=== PATIENT | male | born 1965 | race Caucasian/White ===

== ENCOUNTER 2020-10-14 08:57 | Emergency (ER) | payer OTHER ==
[2020-10-14] MEDS ORDERED: Acetaminophen 500 MG Tab PO ONE (09:27)
[2020-10-14] MEDS ORDERED: Diphtheria,Pertussis(Acell),Tetanus Vaccine 0.5 ML Syringe IM ONE (09:30)
[2020-10-14] MEDS ORDERED: Diphtheria,Pertussis(Acell),Tetanus Vaccine 0.5 ML Syringe ONE (09:35)
--- NOTE | 2020-10-14 09:45 | EDM.PDOC ---
ED HPI GENERAL MEDICAL PROBLEM - General Chief Complaint: General Stated Complaint: FELL OUT OF WORK TRUCK Time Seen by Provider: 10/14/20 09:12 - History of Present Illness INITIAL COMMENTS - FREE TEXT/NARRATIVE: CHIEF COMPLAINT(S): Fall HISTORY OF PRESENT ILLNESS: This is a 55-year-old without any past medical history who comes to the emergency department with a chief complaint of fall. 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 He states that they use a platform which is approximately 5 feet off the ground without any handrails in a ladder. He states that he was going down and his leg got stuck and he tripped. He states that he was hanging by his right leg and hit his head and had some brief loss of consciousness. He states that at this time he is experiencing some right leg, right knee, right elbow, and left lower back pain. He states that he does feel some hot and tingling feeling in his right leg. He denies any bowel incontinence or urinary incontinence. He states his pain is currently a of 10 and described as achy and worse with movement. He states that he has not yet tried anything to relieve the pain. He denies any neck pain but states that when he turns his head to the left he does feel some numbness in his right arm. He denies any blurry vision, double vision or loss of consciousness. He states that he does not know when his tetanus shot last was administered. He denies any associated symptoms or preceding symptoms such as chest pain, shortness of breath, abdominal pain, nausea or vomiting. He denies any use of blood thinners. He states that he is able to ambulate however it is painful. REVIEW OF SYSTEMS: Constitutional: Denies fever, chills. Eyes: Denies eye pain Ears, Nose, Mouth, & Throat: Denies earache Cardiovascular: Denies chest pain Respiratory: Denies shortness of breath Gastrointestinal: Denies Nausea, vomiting, diarrhea, hematochezia. Genitourinary: Denies hematuria Skin:Denies a rash MSK: Positive for right leg, right knee, right elbow and lower back pain. Neurological: Positive for tingling in his right lower extremity and right arm numbness when his head turns to the left. Denies any blurry vision, double vision. Psychiatric: Denies depression PAST MEDICAL HISTORY: As per history of present illness and as reviewed below otherwise noncontributory. SURGICAL HISTORY: As per history of present illness and as reviewed below otherwise noncontributory. SOCIAL HISTORY: As per history of present illness and as reviewed below otherwise noncontributory. FAMILY HISTORY: As per history of present illness and as reviewed below otherwise noncontributory. EXAMINATION OF ORGAN SYSTEMS/BODY AREAS: Constitutional: Blood pressure is 156/87, heart rate 87, respiratory rate 17 with an oxygen saturation 97% on room air. Temperature 36.5 General: Overall well-appearing man who is in no acute distress Psychiatric: Appropriate mood and affect. Eyes: No scleral icterus or conjunctival erythema pupils are equal round reactive to light. Extraocular movements intact. No vertical or horizontal nystagmus. ENMT: Moist mucous membranes. No pharyngeal erythema no hemotympanum or blood in the oropharynx. Cardiovascular: Regular, rate, and rhythm. No gallops, murmurs, or rubs. Bilateral upper extremity and lower extremity pulses symmetric and intact. No peripheral edema. No JVD. Respiratory: Lungs clear to auscultation bilaterally. No wheezes, rales, or rhonchi. Gastrointestinal: Soft, non-tender, non-distended. Normoactive bowel sounds Genitourinary: No suprapubic tenderness Musculoskeletal: The patient does have full range of motion of the right elbow, right knee, right hip, right ankle however with some degree of pain. There is no obvious deformity of any of these extremities. No swelling noted. Compartments were soft. No midline cervical, thoracic, or lumbar tenderness. Skin: There is a linear wound on the patient's right anterior lower leg without any exposed bone or tendon. There is also some abrasions/wounds on the patient's right posterior thigh and posterior knee. Neurological: AOx4. CN grossly intact. Stregth 5/5 in bilateral upper and lower extremity. Sensation is intact bilaterally in upper and lower extremity. Gait appears normal. Patient does report some decreased sensation in the right upper extremity in all distributions when turning his head to the left. MEDICAL DECISION MAKING AND COURSE IN THE ED WITH INTERPRETATION/REVIEW OF DIAGNOSTIC STUDIES: This is a 55-year-old and without any significant past medical history who comes to the emergency department with head injury with loss of consciousness and right elbow, right knee, right tib-fib with multiple abrasions. At this time there is no deformity and the patient is neurovascularly intact. Compartments were soft therefore compartment syndrome is likely not the contributing factor to the patient's pain. Given the patient's location of pain will obtain a right knee x-ray, right tib-fib x-ray and a CT head and CT cervical spine to evaluate for any abnormality. Patient's right elbow has no deformity and minimal tenderness therefore no x-ray will be obtained. There is no midline lumbar tenderness therefore no lumbar spine x-ray or CT will be obtained. We will update the patient's tetanus and provide the patient with Tylenol as he will be driving. I do not believe any other labs or other imaging are indicated. The radiological images were viewed by myself along with reading the report from the radiologist. CT head without contrast does not reveal any acute intracranial hemorrhage or mass. CT cervical spine does not reveal any acute fracture or subluxation. There is a well-corticated ossific density posterior to the C7 spinous process which may represent an age-indeterminate fracture however favored to represent chronic findings given well corticated margin. Right tib-fib x-ray does not reveal any fracture or dislocation. Right knee x-ray does not reveal any fracture or dislocation. On reevaluation I did discuss the results with the patient. I did discuss with him that there was no evidence of any fractures. He was able to ambulate at this time. I did discuss pain management with the patient. He is to follow-up with orthopedics within 5 to 7 days. He is to return for any new or worsening symptoms. I did provide the patient with a contact information in [place] as this is where the patient is from. DISPOSITION: The patient was discharged home in stable condition. The patient will follow up with orthopedics in 5 to 7 days CONDITION: Fair PROCEDURES: None FINAL IMPRESSION(S)/DIAGNOSES: 1. Acute accidental fall 2. Acute closed head injury 3. Acute abrasions to bilateral lower extremities 4. Acute right knee pain, possible ligamentous injury DME: Right knee immobilizer Indication: Right knee pain with possible ligamentous injury Benefit: Immobilization Duration: Until follow-up with orthopedics Cm Jefferson M.D. right leg/knee Pain Score (Numeric/FACES): 8 - Related Data Allergies Allergy/AdvReac Type Severity Reaction Status Date / Time No Known Allergies Allergy Verified 10/14/20 09:04 Home Meds: Home Meds . [No Known Home Meds] 10/14/20 [History] Past Medical History Genitourinary History: Reports: Renal Calculus - Infectious Disease History Infectious Disease History: Reports: None - Past Surgical History GI Surgical History: Reports: Appendectomy Social & Family History - Family History Family Medical History: No Pertinent Family History - Tobacco Use Tobacco Use Status *Q: Never Tobacco User - Caffeine Use Caffeine Use: Reports: Coffee - Recreational Drug Use Recreational Drug Use: No ED ROS GENERAL - Review of Systems Review Of Systems: See Below ED EXAM, GENERAL - Physical Exam Exam: See Below Course - Vital Signs Last Recorded V/S: Last Vital Signs Temp 36.7 C 10/14/20 11:12 Pulse 79 10/14/20 11:12 Resp 19 10/14/20 11:12 BP 130/83 10/14/20 11:12 Pulse Ox 96 10/14/20 11:12 - Orders/Labs/Meds Meds: Medications Discontinued Medications Generic Name Dose Route Start Last Admin Trade Name Milton PRN Reason Stop Dose Admin Acetaminophen 1,000 mg 10/14/20 09:27 10/14/20 09:31 Acetaminophen 500 Mg Tab PO 10/14/20 09:28 1,000 mg ONETIME ONE Administration Diphtheria/Tetanus/Acell Pertussis 0.5 ml 10/14/20 09:30 10/14/20 16:43 Diphtheria,Pertussis(Acell),Tetanus Vaccine 0.5 Ml Syringe IM 10/14/20 09:31 Not Given .ONCE ONE Diphtheria/Tetanus/Acell Pertussis Confirm 10/14/20 09:35 10/14/20 10:05 Diphtheria,Pertussis(Acell),Tetanus Vaccine 0.5 Ml Syringe Administered 10/14/20 09:36 0.5 ml Dose Administration 0.5 ml .ROUTE .STK-MED ONE Ketorolac Tromethamine 15 mg 10/14/20 10:45 10/14/20 10:59 Ketorolac 15 Mg/Ml Sdv IM 10/14/20 10:46 15 mg ONETIME ONE Administration Departure - Departure Time of Disposition: 10:43 Disposition: Home, Self-Care 01 Condition: Fair Clinical Impression: Closed head injury, Injury of right knee - Discharge Information *PRESCRIPTION DRUG MONITORING PROGRAM REVIEWED*: No *COPY OF PRESCRIPTION DRUG MONITORING REPORT IN PATIENT PAT: No Instructions: Acute Knee Pain, Adult, Articular Cartilage Injury, Head Injury, Adult, [id number] Referrals: PCP,None [Primary Care Provider] - Forms: ED Department Discharge Additional Instructions: You evaluate today on an emergent basis. At this time there was no evidence of any fractures however x-rays do not show any ligamentous or tendon injury. We did provide you with a knee immobilizer. I do recommend that you keep the right lower extremity elevated and use pain medications as described below. Please ice the area 20 minutes 4 times a day. In addition given your loss of consciousness you may experience postconcussive syndrome as we discussed. If you have any new or worsening symptoms such as vomiting that cannot be controlled, numbness, tingling, weakness please return to the emergency department. Please follow-up with orthopedics within 5 to 7 days. Please use: Tylenol 500-1000mg every 6 hours (DO NOT TAKE MORE THAN 4000mg in 1 day) Ibuprofen 400mg every 6 hours (Take with food as it can cause ulcers, GI upset) Example schedule: 8:00 AM (Tylenol 500-1000mg) 11:00 AM (Ibuprofen 400mg) 2:00 PM (Tylenol 500-1000mg) 5:00 PM (Ibuprofen 400mg) Ice the area 20 minutes [address] [facility] [place], [place] [phone] The patient is informed of any results of their evaluation and diagnostic workup and all questions are answered. They are given discharge instructions and return precautions. The patient is stable for discharge. The patient states they understand and agree with the plan and that they will return if their symptoms get worse or if they have any new concerns. The following information is given to patients seen in the emergency department who are being discharged to home. This information is to outline your options for follow-up care. We provide all patients seen in our emergency department with a follow-up referral. The need for follow-up, as well as the timing and circumstances, are variable depending upon the specifics of your emergency department visit. If you don't have a primary care physician on staff, we will provide you with a referral. We always advise you to contact your personal physician following an emergency department visit to inform them of the circumstance of the visit and for follow-up with them and/or the need for any referrals to a consulting specialist. The emergency department will also refer you to a specialist when appropriate. This referral assures that you have the opportunity for follow-up care with a specialist. All of these measure are taken in an effort to provide you with optimal care, which includes your follow-up. Under all circumstances we always encourage you to contact your private physician who remains a resource for coordinating your care. When calling for follow-up care, please make the office aware that this follow-up is from your recent emergency room visit. If for any reason you are refused follow-up, please contact the [facility] Emergency Department at and asked to speak to the emergency department charge nurse. Sepsis Event Note (ED) - Evaluation Sepsis Screening Result: No Definite Risk
--- NOTE | 2020-10-14 10:11 | CT ---
Indication: Fell off truck Technique: Noncontrast head CT Comparison: No comparison Findings: Axial noncontrast images through the brain parenchyma demonstrates no acute intracranial hemorrhage or mass. No midline shift. No abnormal extra-axial air fluid collections are seen. Paranasal sinuses and mastoid air cells skull and scalp appear unremarkable. Impression: No acute intracranial hemorrhage or mass. Please note that all CT scans at this facility use dose modulation, iterative reconstruction, and/or weight-based dosing when appropriate to reduce radiation dose to as low as reasonably achievable. Dictated by Talia Alex MD @ Oct 14 2020 10:06AM Signed by Dr. Talia Alex @ Oct 14 2020 10:08AM
--- NOTE | 2020-10-14 10:13 | CR ---
INDICATION: Trauma. TECHNIQUE: Three views of the right knee. IMPRESSION: Anatomic alignment. Early marginal patellofemoral spurring. Minimal narrowing in the medial joint compartment. No signs for acute fracture. Dictated by Leodan Fournier MD @ Oct 14 2020 10:12AM Signed by Dr. Leodan Fournier @ Oct 14 2020 10:12AM
--- NOTE | 2020-10-14 10:13 | CR ---
INDICATION: Trauma. TECHNIQUE: Two-view right tibia fibula. IMPRESSION: No fractures. The alignments are anatomic. Limited visualization of the distal joint space is unremarkable. Dictated by Leodan Fournier MD @ Oct 14 2020 10:10AM Signed by Dr. Leodan Fournier @ Oct 14 2020 10:11AM
--- NOTE | 2020-10-14 10:15 | CT ---
Indication: Fell off truck right arm numbness Technique: Cervical spine CT scan Comparison: No comparison Findings: Straightening of the normal cervical lordosis. Lateral masses align normally with the articular processes of C2. There is a well corticated ossific density posterior to the C7 spinous process which may represent an age indeterminate fracture however favored to represent chronic findings given well corticated margin. Prevertebral soft tissues are within normal limits. Impression: 1. No definite acute fracture or traumatic malalignment. Well corticated ossific density posterior to the C7 spinous process could represent an age-indeterminate fracture however favor to represent chronic findings. Please note that all CT scans at this facility use dose modulation, iterative reconstruction, and/or weight-based dosing when appropriate to reduce radiation dose to as low as reasonably achievable. Dictated by Talia Alex MD @ Oct 14 2020 10:08AM Signed by Dr. Talia Alex @ Oct 14 2020 10:13AM
[2020-10-14] MEDS ORDERED: Ketorolac 15 MG/ML SDV IM ONE (10:45)
== END 2020-10-14 11:12 | disposition home or self-care (01) ==
LOC: MW.ED 08:57
DX: S09.90XA Unspecified injury of head, initial encounter (principal); S80.812A Abrasion, left lower leg, initial encounter; S80.811A Abrasion, right lower leg, initial encounter; Z23 Encounter for immunization; W01.0XXA Fall on same level from slipping, tripping and stumbling without subsequent striking against object, initial encounter
CPT/HCPCS: 70450; 72125; 73562; 73590; 90471; 90715; 96372; 99284; A9270; J1885; 99283